=== PATIENT | female | born 1940 | race Caucasian/White ===

== ENCOUNTER 2017-07-11 01:49 | Emergency (ER) | payer MEDICARE, OTHER ==
[2017-07-11] MEDS ORDERED: Dexamethasone 4 MG TAB ONE (02:10)
== END 2017-07-11 02:19 | disposition home or self-care (01) ==
LOC: MADERS 01:49
DX: T78.40XA Allergy, unspecified, initial encounter (principal); I10 Essential (primary) hypertension; Z87.891 Personal history of nicotine dependence
CPT/HCPCS: 99283; J8540

== ENCOUNTER 2018-12-29 09:23 | Outpatient (CLI) | payer MEDICARE, OTHER ==
[2018-12-29 09:35] LABS: #Basophils 0.2 thou/uL (0.0-0.2); #Eosinphils 0.5 thou/uL (0.0-0.7); #Lymphocytes 1.5 thou/uL (1.20-3.40); #Monocytes 1.2 thou/uL (0.11-0.59); #Neutrophils 8.5 thou/uL (1.40-6.50); %Basophils 1.3 % (0.0-1.0); %Lymphocytes 12.8 % (21.0-51.0); %Monocytes 10.2 % (0.0-10.0); %Neutrophils 71.7 % (42.0-75.0); Hemoglobin 14.4 g/dL (12.0-16.0); Mean Corpuscular HGB CONC 30.6 g/dL (32.0-36.0); Mean Corpuscular Hemoglobin 28.2 pg (27.0-31.0); Mean Corpuscular Volume 92.1 fL (78.0-98.0); Mean Platelet Volume 8.5 fL (7.4-10.4); Platelet Count 232 thou/uL (130-400); RBC Distribution Width 12.1 % (11.5-14.5); White Blood Cell (WBC) Count 11.8 thou/uL (4.8-10.8)
[2018-12-29 10:04] LABS: ALT (SGPT) 19 U/L (8-55); AST (SGOT) 17 U/L (5-34); Alkaline Phosphatase 66 U/L (40-110); Anion Gap 15 mmol/L (10-20); BUN (Urea Nitrogen) 19 mg/dL (9.8-20.1); Bilirubin, Total 0.5 mg/dL (0.2-1.2); Calc. Creatinine Clearance 0 mL/min (70-130); Calcium 9.8 mg/dL (7.8-10.44); Carbon Dioxide 26 mmol/L (23-31); Cardiac Risk 2.6 (Less than 4.5); Chloride 106 mmol/L (98-107); Cholesterol 123 mg/dl (< 200 Desired); Estimated GFR-MDRD 57; Globulin 2.7 g/dL (2.4-3.5); Glucose 96 mg/dL (83-110); HDL Cholesterol 47 mg/dL (>60 Neg Risk); LDL Cholesterol, Calculated 49 mg/dL; Potassium 4.1 mmol/L (3.5-5.1); Protein, Total 6.7 g/dL (6.0-8.3); Sodium 143 mmol/L (136-145); Triglycerides 136 mg/dL (Less than 150)
== END 2018-12-29 09:24 | disposition home or self-care (01) ==
LOC: MADEKG 09:23
PROVIDERS: ATTEND Nurse Practitioner Family
DX: I11.9 Hypertensive heart disease without heart failure (principal); E78.00 Pure hypercholesterolemia, unspecified
CPT/HCPCS: 36415; 80053; 80061; 83880; 85025; 93005; 93010

== ENCOUNTER 2019-02-17 18:50 | Emergency (ER) | payer MEDICARE, OTHER ==
--- NOTE | 2019-02-17 19:41 | RAD ---
EXAM: Two views chest PROVIDED CLINICAL HISTORY: Dyspnea. Patient diagnosed with acute bronchitis one day ago. No improvement. Wheezing. COMPARISON: 06/24/2018. FINDINGS: Cardiac silhouette is within normal limits. There is mild pulmonary vascular congestion present. Ther e is linear and patchy density present at the left lung base with is not appreciated on the lateral view. Findings are worrisome for atelectasis versus developing area of pneumonitis. Degenerative diaz ges are again seen in the thoracic spine. Vascular calcifications are seen in the visualized abdominal aorta. IMPRESSION: 1. Linear and patchy density left lung base which may be related to atelectasis, but developing area of pneumonitis is a possibility. Follow-up chest x-ray is recommended. 2. Mild pulmonary vascular congestion.
[2019-02-17 19:57] LABS: ALT (SGPT) 17 U/L (8-55); AST (SGOT) 20 U/L (5-34); Albumin 4.4 g/dL (3.4-4.8); Alkaline Phosphatase 59 U/L (40-110); Anion Gap 15 mmol/L (10-20); BUN (Urea Nitrogen) 23 mg/dL (9.8-20.1); Bilirubin, Total 0.4 mg/dL (0.2-1.2); Calc. Creatinine Clearance 0 mL/min (70-130); Calcium 9.9 mg/dL (7.8-10.44); Carbon Dioxide 26 mmol/L (23-31); Chloride 106 mmol/L (98-107); Estimated GFR-MDRD 50; Globulin 2.7 g/dL (2.4-3.5); Glucose 151 mg/dL (83-110); Potassium 4.7 mmol/L (3.5-5.1); Protein, Total 7.1 g/dL (6.0-8.3); Sodium 142 mmol/L (136-145)
[2019-02-17 20:08] LABS: Band 2 % (5-11); Hemoglobin 13.8 g/dL (12.0-16.0); Lymphocytes 9 % (21-51); MDiff Complete? YES; Mean Corpuscular Hemoglobin 28.4 pg (27.0-31.0); Mean Corpuscular Volume 91.6 fL (78.0-98.0); Mean Platelet Volume 7.9 fL (7.4-10.4); Monocytes 4 % (0-10); Neutrophil 85 % (42-75); Platelet Count 272 thou/uL (130-400); Red Blood Cell (RBC) Count 4.87 mill/uL (4.20-5.40); White Blood Cell (WBC) Count 21.2 thou/uL (4.8-10.8)
--- NOTE | 2019-02-17 21:11 | CT ---
CT CHEST WITHOUT CONTRAST CLINICAL INDICATION: Shortness of breath and wheezing. Dyspnea. COMPARISON: None FINDINGS: Aorta: Vascular calcifications are seen in the thoracic and abdominal aorta. There is a very dense ca lcification occupying almost the entire lumen of the proximal abdominal aorta resulting in severe narrowing of the lumen in this region. Lungs: Emphysematous changes are seen within the lungs greater in the upper lobes. No consolidation o r pleural fluid is seen in the lungs bilaterally. No pulmonary nodule or mass is seen. There is mild bibasilar atelectasis. Mediastinum: Lack of intravenous contrast limits evaluation of mediastinal structures, but no definit e enlarged lymph nodes are seen. Vascular calcifications are seen in the coronary arteries. Thyroid gland: Grossly normal nonenhanced CT appearance. Osseous structures: Degenerative changes are seen in the thoracic as well as visualized lower cervica l spine. Incidental note is made of bilateral cervical ribs. Chest wall: No abnormality visualized. Upper abdomen: There is atrophy of the pancreas. Splenic granulomata but are visualized. IMPRESSION: 1. Large dense calcification seen in the proximal abdominal aorta which occupies almost the entire michele men of the proximal abdominal aorta and results in severe narrowing. 2. Evidence of mild COPD. 3. No consolidation or pleural fluid is seen in the lungs bilaterally. 4. Vascular calcifications involving the thoracic and visualized abdominal aorta as well as the coron julia arteries.
[2019-02-17] MEDS ORDERED: Acetaminophen 325 MG TAB ONE (21:17)
== END 2019-02-17 21:45 | disposition home or self-care (01) ==
LOC: MADERS 18:50
DX: J06.9 Acute upper respiratory infection, unspecified (principal); I10 Essential (primary) hypertension; G43.909 Migraine, unspecified, not intractable, without status migrainosus; Z87.891 Personal history of nicotine dependence
CPT/HCPCS: 71046; 71250; 80053; 83880; 84484; 85025; 87804; 93005; J7620

== ENCOUNTER 2022-05-30 03:38 | Emergency (ER) | payer MEDICARE, OTHER ==
[2022-05-30 04:01] LABS: #Basophils 0.1 thou/uL (0.0-0.2); #Lymphocytes 0.9 thou/uL (1.20-3.40); #Monocytes 0.9 thou/uL (0.11-0.59); #Neutrophils 15.8 thou/uL (1.40-6.50); %Basophils 0.3 % (0.0-1.0); %Monocytes 4.9 % (0.0-10.0); %Neutrophils 89.7 % (42.0-75.0); Hemoglobin 13.9 g/dL (12.0-16.0); Mean Corpuscular HGB CONC 32.7 g/dL (32.0-36.0); Mean Corpuscular Hemoglobin 30.4 pg (27.0-31.0); Mean Corpuscular Volume 93.1 fl (78.0-98.0); Mean Platelet Volume 9.6 fL (7.4-10.4); Platelet Count 213 10x3/uL (130-400); RBC Distribution Width 12.7 % (11.5-14.5); Red Blood Cell (RBC) Count 4.57 mill/uL (4.20-5.40); White Blood Cell (WBC) Count 17.6 10x3/uL (4.8-10.8)
[2022-05-30] MEDS ORDERED: Fentanyl 100 MCG/2 ML VIAL ONE ×2 (04:07→05:48)
[2022-05-30 04:17] LABS: Base Excess-Venous -1.9 mmol/L (-2.0 to 3.0); Bicarbonate (HCO3v) 24.8 mmol/L (22.0-28.0); CO2 Tension (PvCO2) 48.6 mmHg (42.0-51.0); Calcium, Ionized 1.18 mmol/L (1.15-1.33); Chloride 105 mmol/L (98-107); Hemoglobin - Calc 14.6 g/dL (12.0-16.0); Potassium 4.7 mmol/L (3.5-5.1); Sodium 139 mmol/L (138-145); T. Carbon Dioxide 26.3 mmol/L (22.0-28.0); vO2 Saturation-calc 67.9 % (60.0-85.0)
[2022-05-30 04:23] LABS: ALT (SGPT) 23 U/L (8-55); AST (SGOT) 25 U/L (5-34); Albumin 4.1 g/dL (3.4-4.8); Alkaline Phosphatase 66 U/L (40-110); Anion Gap 15 mmol/L (10-20); BUN (Urea Nitrogen) 24 mg/dL (9.8-20.1); Bilirubin, Total 0.8 mg/dL (0.2-1.2); Calc. Creatinine Clearance 0 mL/min (70-130); Calcium 9.5 mg/dL (7.8-10.44); Carbon Dioxide 22 mmol/L (23-31); Chloride 107 mmol/L (98-107); Estimated GFR 66; Globulin 2.7 g/dL (2.4-3.5); Glucose 131 mg/dL (83-110); Lipase 8 U/L (8-78); Magnesium 1.7 mg/dL (1.6-2.6); Potassium 4.4 mmol/L (3.5-5.1); Protein, Total 6.8 g/dL (5.8-8.1); Sodium 140 mmol/L (136-145)
[2022-05-30 05:03] LABS: Bilirubin Negative (Negative); Blood, Urine Trace (Negative); Clarity Clear (Clear); Glucose, Urine (Dipstick) Negative (Negative); Ketone, Urine Negative (Negative); Leukocyte Negative (Negative); Nitrite Negative (Negative); Protein, Urine (Dipstick) Negative (Neg-Trace); Specific Gravity, Urine 1.015 (1.005-1.030); Urobilinogen 0.2 mg/dL (Less than 2)
[2022-05-30 05:09] LABS: Bacteria/HPF None Seen HPF (None Seen); RBC/HPF 0-3 HPF (0-3); Squamous Epithelial 0-3 HPF (0-3); Transitional Epithelial 0-3 HPF (None Seen); WBC/HPF 0-3 HPF (0-3)
[2022-05-30] MEDS ORDERED: metroNIDAZOLE 500 MG/100 ML BAG ONE (06:07)
[2022-05-30] MEDS ORDERED: Sodium Chloride 0.9% 500 ML ONE (06:09)
[2022-05-30 07:02] LABS: INR-International Normal Ratio 1.1; Prothrombin Time 15.1 sec (12.0-14.7)
[2022-05-30 07:03] LABS: PTT 37.3 sec (22.9-36.1)
[2022-05-30] MEDS ORDERED: Iopamidol 370 76% 100 ML VIAL ONE (09:20)
== END 2022-05-30 07:08 | disposition short-term general hospital (02) ==
LOC: MADERS 03:38
DX: A41.9 Sepsis, unspecified organism (principal); K52.9 Noninfective gastroenteritis and colitis, unspecified; K55.049 Acute infarction of large intestine, extent unspecified; K63.89 Other specified diseases of intestine; I87.8 Other specified disorders of veins; I10 Essential (primary) hypertension; E78.5 Hyperlipidemia, unspecified; Z87.891 Personal history of nicotine dependence; Z79.899 Other long term (current) drug therapy
CPT/HCPCS: 51701; 74177; 80053; 81003; 81015; 82330; 82803; 83605; 83690; 83735; 83880; 84484; 85025; 85610; 85730; 87040; 93005; 96365; 96374; 96375; 96376; J1956; J3010; J7030; Q9967

== ENCOUNTER 2022-06-09 20:55 | Emergency (ER) | payer MEDICARE, OTHER ==
[~2022-06-09 20:55] MED LIST: Iopamidol 370 76% 200 ML VIAL ONE; Sodium Chloride 0.9% 100 ML BAG ONE
[2022-06-09 21:26] LABS: #Basophils 0.1 thou/uL (0.0-0.2); #Eosinphils 0.3 thou/uL (0.0-0.7); #Lymphocytes 1.2 thou/uL (1.20-3.40); #Monocytes 1.4 thou/uL (0.11-0.59); #Neutrophils 10.3 thou/uL (1.40-6.50); %Monocytes 10.4 % (0.0-10.0); %Neutrophils 77.7 % (42.0-75.0); Hemoglobin 9.6 g/dL (12.0-16.0); Mean Corpuscular HGB CONC 32.2 g/dL (32.0-36.0); Mean Corpuscular Hemoglobin 30.6 pg (27.0-31.0); Mean Corpuscular Volume 95.1 fl (78.0-98.0); Mean Platelet Volume 8.4 fL (7.4-10.4); Platelet Count 359 10x3/uL (130-400); RBC Distribution Width 13.5 % (11.5-14.5); Red Blood Cell (RBC) Count 3.13 mill/uL (4.20-5.40); White Blood Cell (WBC) Count 13.3 10x3/uL (4.8-10.8)
[2022-06-09] MEDS ORDERED: Sodium Chloride 0.9% 1,000 ML ONE (21:27)
[2022-06-09 21:31] LABS: INR-International Normal Ratio 1.2
[2022-06-09 21:32] LABS: PTT 36.5 sec (22.9-36.1)
[2022-06-09 21:34] LABS: ALT (SGPT) 31 U/L (8-55); AST (SGOT) 32 U/L (5-34); Albumin 3.4 g/dL (3.4-4.8); Alkaline Phosphatase 52 U/L (40-110); Anion Gap 17 mmol/L (10-20); BUN (Urea Nitrogen) 12 mg/dL (9.8-20.1); Bilirubin, Total 0.6 mg/dL (0.2-1.2); Calc. Creatinine Clearance 0 mL/min (70-130); Calcium 8.9 mg/dL (7.8-10.44); Carbon Dioxide 23 mmol/L (23-31); Chloride 105 mmol/L (98-107); Estimated GFR 65; Globulin 2.5 g/dL (2.4-3.5); Glucose 120 mg/dL (83-110); Potassium 3.8 mmol/L (3.5-5.1); Protein, Total 5.9 g/dL (5.8-8.1); Sodium 141 mmol/L (136-145)
== END 2022-06-09 23:30 | disposition short-term general hospital (02) ==
LOC: MADERS 20:55
DX: K92.2 Gastrointestinal hemorrhage, unspecified (principal); Z79.01 Long term (current) use of anticoagulants; I10 Essential (primary) hypertension; E78.5 Hyperlipidemia, unspecified; F17.210 Nicotine dependence, cigarettes, uncomplicated; Z79.899 Other long term (current) drug therapy
CPT/HCPCS: 74174; 80053; 85025; 85610; 85730; 86850; 86900; 86901; J7050

== ENCOUNTER 2022-07-03 08:23 | Emergency (ER) | payer MEDICARE, OTHER ==
[2022-07-03] MEDS ORDERED: Iopamidol 370 76% 200 ML VIAL ONE (08:35)
[2022-07-03 08:59] LABS: #Basophils 0.1 thou/uL (0.0-0.2); #Lymphocytes 0.7 thou/uL (1.20-3.40); #Monocytes 0.8 thou/uL (0.11-0.59); #Neutrophils 10.9 thou/uL (1.40-6.50); %Eosinophils 0.1 % (0.0-10.0); %Lymphocytes 5.3 % (21.0-51.0); %Monocytes 6.7 % (0.0-10.0); %Neutrophils 86.8 % (42.0-75.0); Hemoglobin 11.4 g/dL (12.0-16.0); Mean Corpuscular HGB CONC 32.1 g/dL (32.0-36.0); Mean Corpuscular Hemoglobin 29.3 pg (27.0-31.0); Mean Corpuscular Volume 91.4 fl (78.0-98.0); Mean Platelet Volume 7.9 fL (7.4-10.4); Platelet Count 330 10x3/uL (130-400); RBC Distribution Width 13.6 % (11.5-14.5); White Blood Cell (WBC) Count 12.5 10x3/uL (4.8-10.8)
[2022-07-03] MEDS ORDERED: Sodium Chloride 0.9% 1,000 ML ONE (09:06)
[2022-07-03 09:33] LABS: BUN (Urea Nitrogen) 27 mg/dL (9.8-20.1); Bilirubin, Total 0.4 mg/dL (0.2-1.2); Calc. Creatinine Clearance 0 mL/min (70-130); Carbon Dioxide 18 mmol/L (23-31); Chloride 105 mmol/L (98-107); Estimated GFR 43; Glucose 114 mg/dL (83-110); Potassium 4.3 mmol/L (3.5-5.1); Sodium 137 mmol/L (136-145)
[2022-07-03 09:34] LABS: ALT (SGPT) 26 U/L (8-55); AST (SGOT) 37 U/L (5-34); Albumin 3.8 g/dL (3.4-4.8); Alkaline Phosphatase 56 U/L (40-110); Protein, Total 6.8 g/dL (5.8-8.1)
[2022-07-03 09:35] LABS: Anion Gap 18 mmol/L (10-20)
[2022-07-03 11:39] LABS: Bilirubin Negative (Negative); Blood, Urine Negative (Negative); Clarity Clear (Clear); Glucose, Urine (Dipstick) Negative (Negative); Ketone, Urine Negative (Negative); Leukocyte Negative (Negative); Nitrite Negative (Negative); Protein, Urine (Dipstick) Negative (Neg-Trace); Specific Gravity, Urine 1.015 (1.005-1.030); Urobilinogen 0.2 mg/dL (Less than 2)
== END 2022-07-03 13:36 | disposition left against medical advice (07) ==
LOC: MADERS 08:23
DX: I95.9 Hypotension, unspecified (principal); E78.5 Hyperlipidemia, unspecified; I10 Essential (primary) hypertension; Z87.891 Personal history of nicotine dependence; Z79.899 Other long term (current) drug therapy
CPT/HCPCS: 70450; 71045; 71275; 72125; 80053; 81003; 84484; 85025; 85379; 93005; 94760; 96360; J7050

== ENCOUNTER 2024-01-10 21:27 | Emergency (ER) | payer OTHER ==
[2024-01-10] MEDS ORDERED: Aspirin Chewable 81 MG TAB ONE (22:04)
[2024-01-10 22:06] LABS: #Basophils 0.1 thou/uL (0.0-0.2); #Eosinophils 0.3 thou/uL (0.0-0.7); #Lymphocytes 1.3 thou/uL (1.20-3.40); #Monocytes 0.8 thou/uL (0.11-0.59); %Basophils 0.9 % (0.0-1.0); %Eosinophils 3.6 % (0.0-10.0); %Lymphocytes 14.9 % (21.0-51.0); %Monocytes 9.8 % (0.0-10.0); %Neutrophils 70.8 % (42.0-75.0); Hematocrit 36.2 % (36.0-47.0); Hemoglobin 11.8 g/dL (12.0-16.0); Mean Corpuscular HGB CONC 32.6 g/dL (32.0-36.0); Mean Corpuscular Volume 95.1 fl (78.0-98.0); Mean Platelet Volume 7.5 fL (7.4-10.4); Platelet Count 255 10x3/uL (130-400); RBC Distribution Width 12.5 % (11.5-14.5); Red Blood Cell (RBC) Count 3.81 mill/uL (4.20-5.40); White Blood Cell (WBC) Count 8.4 10x3/uL (4.8-10.8)
[2024-01-10 22:28] LABS: ALT (SGPT) 15 U/L (8-55); AST (SGOT) 18 U/L (5-34); Albumin 3.6 g/dL (3.4-4.8); Alkaline Phosphatase 73 U/L (40-110); Anion Gap 16 mmol/L (10-20); BUN (Urea Nitrogen) 28 mg/dL (9.8-20.1); Bilirubin, Total 0.3 mg/dL (0.2-1.2); Calc. Creatinine Clearance 0 mL/min (70-130); Calcium 9.1 mg/dL (7.8-10.44); Carbon Dioxide 18 mmol/L (23-31); Chloride 112 mmol/L (98-107); Estimated GFR 62; Globulin 2.6 g/dL (2.4-3.5); Glucose 100 mg/dL (83-110); Lipase 23 U/L (8-78); Potassium 4.2 mmol/L (3.5-5.1); Protein, Total 6.2 g/dL (5.8-8.1); Sodium 142 mmol/L (136-145); Troponin I Less than 0.010 ng/mL (< 0.028)
== END 2024-01-10 23:15 | disposition home or self-care (01) ==
LOC: MADERS 21:27
DX: R07.9 Chest pain, unspecified (principal); I10 Essential (primary) hypertension; R79.1 Abnormal coagulation profile; E78.5 Hyperlipidemia, unspecified; Z79.82 Long term (current) use of aspirin; Z79.899 Other long term (current) drug therapy
CPT/HCPCS: 71045; 80053; 83690; 84484; 85025; 85379; 93005

== ENCOUNTER 2024-01-27 16:40 | Emergency (ER) | payer OTHER ==
[2024-01-27 17:37] LABS: #Basophils 0.1 thou/uL (0.0-0.2); #Eosinophils 0.1 thou/uL (0.0-0.7); #Lymphocytes 0.7 thou/uL (1.20-3.40); #Neutrophils 6.1 thou/uL (1.40-6.50); %Basophils 1.3 % (0.0-1.0); %Eosinophils 1.7 % (0.0-10.0); %Lymphocytes 8.8 % (21.0-51.0); %Monocytes 12.3 % (0.0-10.0); %Neutrophils 75.9 % (42.0-75.0); Hematocrit 36.8 % (36.0-47.0); Hemoglobin 11.8 g/dL (12.0-16.0); Mean Corpuscular HGB CONC 31.9 g/dL (32.0-36.0); Mean Corpuscular Hemoglobin 30.7 pg (27.0-31.0); Mean Corpuscular Volume 96.2 fl (78.0-98.0); Mean Platelet Volume 7.6 fL (7.4-10.4); Platelet Count 240 10x3/uL (130-400); RBC Distribution Width 12.5 % (11.5-14.5); Red Blood Cell (RBC) Count 3.83 mill/uL (4.20-5.40)
[2024-01-27] MEDS ORDERED: HYDROcodone/Acetaminophen 5/325 mg Tablet ONE (18:32)
== END 2024-01-27 18:50 | disposition short-term general hospital (02) ==
LOC: MADERS 16:40
DX: M25.561 Pain in right knee (principal); E78.5 Hyperlipidemia, unspecified; I10 Essential (primary) hypertension; Z87.891 Personal history of nicotine dependence; Z79.899 Other long term (current) drug therapy
CPT/HCPCS: 36415; 85025; 85379; 99283